=== PATIENT | male | born 1975 | race African-American/Black ===

== ENCOUNTER 2017-08-30 10:51 | Emergency (ER) | payer OTHER ==
[~2017-08-30] VITALS: Ht 190.5 cm; Wt 92.4 kg
[~2017-08-30 10:51] MED LIST: ACID REDUCER20 MG PO; ACID REFLUX PILL PO; IBUPROFEN200 M1 PO; NOHOMEMEDS
[2017-08-30] MEDS ORDERED: NAPROSYN500 MG PO (13:44)
[2017-08-30 13:53] VITALS: BP 115/89
== END 2017-08-30 14:00 | disposition home or self-care (01) ==
LOC: EME 10:51
DX: S56.114A Strain of flexor muscle, fascia and tendon of left middle finger at forearm level, initial encounter (principal); X58.XXXA Exposure to other specified factors, initial encounter; Y99.0 Civilian activity done for income or pay; F17.290 Nicotine dependence, other tobacco product, uncomplicated
CPT/HCPCS: 99281; 99284